=== PATIENT | male | born 1980 | race Caucasian/White ===

== ENCOUNTER 2023-11-28 08:21 | Outpatient (CLI) | payer MEDICARE, MEDICAID, OTHER ==
[~2023-11-28 08:21] MED LIST: ADAL40SY SQ; LINE600T14 PO; METR-159 PO; MIDO5TAB4 PO
[2023-11-28] MEDS ORDERED: iohexol 300mg/ml 100ml inj. ONE (08:43)
== END 2023-11-28 23:59 | disposition home or self-care (01) ==
LOC: RAD 08:21
PROVIDERS: ATTEND Internal Medicine Infectious Disease
DX: K65.1 Peritoneal abscess (principal); K82.8 Other specified diseases of gallbladder; Z98.890 Other specified postprocedural states
CPT/HCPCS: 74177; J3490; Q9967